=== PATIENT | male | born 1940 | race African-American/Black ===

== ENCOUNTER 2023-06-07 16:24 | Emergency (ER) | payer OTHER, BC ==
[2023-06-07 16:33] VITALS: BP 151/85; PULSE 106; RESP 18; TEMP 99.8; BMI 31.1
[2023-06-07 17:52] LABS: BASO % 0.7 % (0-2.0); EOS % 3.7 % (0-4.5); HEMATOCRIT 38.2 % (35.4-49); HEMOGLOBIN 12.6 GM/dL (11.7-16.9); LYMPH % 14.6 % (8-40); MCH 28.6 pg (25.7-33.7); MEAN CELL VOLUME 86.5 fl (80-96); MEAN PLT VOLUME 7.9 fl (7.5-11.1); MONO % 8.4 % (3.8-10.2); NEUT % 72.6 % (42.8-82.8); PLATELET COUNT 173 10^3/uL (134-434); RBC 4.42 M/mm3 (4.00-5.60); RDW 14.9 % (11.9-15.9)
[2023-06-07 17:57] LABS: VENOUS BASE EXCESS -0.3 mmol/L (-2-2); VENOUS O2 SATURATION 30.7 % (70-80); VENOUS PCO2 48.8 mmHg (38-52); VENOUS PH 7.344 (7.310-7.410)
[2023-06-07 18:08] LABS: ACTIVATED PTT 29.7 SECONDS (25.2-36.5); INR 1.05 (0.83-1.09); PROTHROMBIN TIME (PATIENT) 12.2 SEC (9.7-13.0)
[2023-06-07 18:10] LABS: POTASSIUM 4.7 mmol/L (3.5-5.1)
[2023-06-07 18:12] LABS: CALCIUM 9.2 mg/dL (8.5-10.1)
[2023-06-07 18:13] LABS: ALBUMIN 3.5 g/dl (3.4-5.0); BLOOD UREA NITROGEN 8.4 mg/dL (7-18)
[2023-06-07 18:16] LABS: CREATININE 0.8 mg/dL (0.55-1.3)
[2023-06-07 18:18] LABS: BILIRUBIN,TOTAL 0.6 mg/dL (0.2-1)
[2023-06-07 18:21] LABS: N-TERMINAL BNP 157.8 pg/ml (5-450)
[2023-06-07 18:23] LABS: LACTIC ACID 2.1 mmol/L (0.4-2.0)
== END 2023-06-07 19:17 | disposition left against medical advice (07) ==
LOC: JER 16:24
DX: R05.9 Cough, unspecified (principal); R06.02 Shortness of breath; R53.1 Weakness; Z85.72 Personal history of non-Hodgkin lymphomas; Z20.822 Contact with and (suspected) exposure to COVID-19
CPT/HCPCS: 0241U-QW; 36415; 71046-TC-FY; 80053; 82803; 83605; 83880; 84484; 85025; 85610; 85730; 87040; 93005; 93010; 99285-25